=== PATIENT | male | born 1970 | race Caucasian/White ===

== ENCOUNTER → 2017-06-21 | Outpatient (CLI) | payer OTHER ==
[2017-06-21 12:58] LABS: ALT/SGPT 29 U/L (12-78); BLOOD UREA NITROGEN 18 mg/dl (7-18); CALCIUM 8.9 mg/dl (8.5-10.1); CARBON DIOXIDE 28 mmol/L (21-32); CHOLESTEROL 184 mg/dl (0-200); CREATININE 1.21 mg/dl (0.60-1.40); GLUCOSE 95 mg/dl (70-99); POTASSIUM 4.1 mmol/L (3.5-5.1); SODIUM 137 mmol/L (136-145)
[2017-06-21 13:01] LABS: ALKALINE PHOSPHATASE 52 U/L (45-117); AST/SGOT 14 U/L (15-37); LDL CHOLESTEROL CALCULATED 132 mg/dl; TOTAL PROTEIN 7.2 gm/dl (6.4-8.2)
== END | disposition home or self-care (01) ==
LOC: C.LABPVFM 08:13
PROVIDERS: ATTEND Nurse Practitioner Family
DX: R03.0 Elevated blood-pressure reading, without diagnosis of hypertension (principal)

== ENCOUNTER → 2017-07-13 | Outpatient (CLI) | payer OTHER ==
--- NOTE | 2017-07-14 06:12 | PAP/PSG TECHNICIAN REPORT ---
[facility] Noc Engineer Polysomnogram Report Study name: None Report date: 07/14/2017 Study date: 07/13/2017 Referring Physician: Helen Zarate Name: CARTER WILFRIDO Interpreting Physician: Deangelo Sánchez D.O. Date of : 1970 Noc Engineer: Saida Guzman [facility]. Sex: Male Age: 46 Study Type: PSG Weight: 208 lbs Height: 46 years, Height 6' 0" BMI: 28.21 Medications: EPIPEN 0.3 MG/0.3 ML, MULTI VIT, CELERY SEED, OMEGA 3 FISH OIL, BABY ASPIRIN Patient History 46 yr-old male here for a baseline study. He has a history of snoring, and daytime sleepiness. His [place] scale is 11. The test was started on room air. ETCO2 testing was not utilized during this study. Room 3 Parameters Monitored NPSG: E1-M2, E2-M1, Fp1-M2, Fp2-M1, F3-M2, F4-M2, F4-M1, C3-M2, C4-M2, C4-M1, O1-M2, O2-M2, O2-M1, T3-M2, T4-M1, P3-M2, P4-M1, CHIN1, CHIN2, HR, EKG, Legs, PFLOW, SNOR, FLOW, CFLOW, Tidal Volume, THOR, ABDO, SpO2, PLTH, CPRESS, ETCO2 Wave, ETCO2, pH Sleep Architecture Sleep Stages Time at Lights Off 10:02:32 PM STAGES Time (min.) TST (%) Time at Lights On 5:26:32 AM Wake 27.5 -- Total Recording Time (TRT) 444.00 min. N1 11.5 3 Total Sleep Period (TSP) 437.5 min. N2 299.0 72 Total Sleep Time (TST) 416.5min. N3 53.5 13 Awake Time 27.5 min. REM 52.5 13 Wake after Sleep Onset 21.5 min. Sleep Efficiency (SE) 94 % Sleep Onset Latency (MAYCOL) 6.0 min. Number of Stage 1 Shifts None Awakenings 18 Stage Changes 76 Number of REM periods 4 REM 52.5 13 REM Latency 198.0 min. NREM 364.0 87 Body Position Analysis Supine Right Left Side Prone Vertical Total Sleep Time (min.) 229.2 208.7 0.0 208.73 0.0 0.0 Total Sleep Time (%) 50% 50% 0% 50 0% N/A% Total Sleep Time REM (min.) 25.5 27.0 0.0 None 0.0 0.0 Total Sleep Time NREM (min.) 182.3 181.7 0.0 None 0.0 0.0 Intermittent Wake (min.) 21.5 6.0 0.0 None 0.0 0.0 Total Sleep Period (%) 51% None None None None None Arousals Myoclonus (PLM) * Events Count Index Events Count Index Spontaneous 23 3 Events Awake (PLMW) 48 104.7 Respiratory 8 1.3 Events Asleep w/ Arousal (PLMA) 23 3.3 PLM 23 3 Events Asleep w/o Arousal (PLMS) 93 13.4 Snoring 23 3 Total Asleep 116 16.7 Total 77 11 Total 164 22 Respiratory Analysis * CA OA MA CH H RERA Total Count 24 2 0 0 36 0 62 Index 3.5 0.3 0.0 0 5.2 0 8.9 Mean Duration 13.2 11.1 0.0 0.00 17.2 0.0 15.4 Longest Duration 20.8 11.1 0.0 0.00 0.0 0.0 22.3 Respiratory Event Summary Total Supine ~Supine Right Left Prone REM NREM Apneas Count 26 24 2 2 N/A N/A 0 26 Index 3.7 7 1 0.6 N/A N/A 0 4 Hypopneas (4% Desat) Count 36 29 7 7 N/A N/A 4 32 Index 5.2 8.4 2 2.0 N/A N/A 4.6 5.3 Apneas & All Hypopneas Count 62 53 9 9 N/A N/A 4 58 Index 8.9 15 3 3 N/A N/A 4.6 9.6 Respiratory Events (Supervisor Extrusion+All Hyp+RERA) Count 62 53 9 9 N/A N/A 4 58 Index 8.9 15 3 2.6 N/A N/A 4.6 9.6 Respiratory Related Arousal Count 8 53 0 0 N/A N/A 0 9 Index 1.3 3 0 0 N/A N/A 0 1 Snoring Analysis Supine Right Left Prone REM NREM Total Snore duration 41.6 min Snores count 1,346 120 N/A N/A 123 1,343 1,466 Snore mean duration 1.7 Sec Snores index 389 34 N/A N/A 140.6 221.4 211.2 TST with snoring (%) 10.0% Desaturation Event Summary: Minimum %SpO2 Event Count Mean/Min/Max Duration(sec.) Desaturation Index % Time In Bed > 90 72 26.1 / 8.0 / 60.0 12.1 80.6 86 - 90 10 18.5 / 8.0 / 34.5 7.0 19.4 81 - 85 0 N/A 0.0 0.0 76 - 80 0 N/A 0.0 0.0 71 - 75 0 N/A 0.0 0.0 66 - 70 0 N/A 0.0 0.0 61 - 65 0 N/A 0.0 0.0 56 - 60 0 N/A 0.0 0.0 51 - 55 0 N/A 0.0 0.0 < 50 0 N/A 0.0 0.0 Total REM NREM Awake <50% 0.0 min. 0.0 min. 0.0 min. 0.0 min. 51 - 60% 0.0 min. 0.0 min. 0.0 min. 0.0 min. 61 - 70% 0.0 min. 0.0 min. 0.0 min. 0.0 min. 71 - 80% 0.0 min. 0.0 min. 0.0 min. 0.0 min. 81 - 90% 86.1 min. 11.4 min. 72.6 min. 2.1 min. 91 - 100% 357.9 min. 41.1 min. 291.4 min. 25.4 min. Average 91 92 91 93 Minimum SpO2 84 86 84 86 Desaturation Event Index 9.7 10.3 9.2 17.5 # Desat. Events below 89% 24 3 20 1 Time(%) with Saturation below 89% 2.1 0.2 1.8 0.1 Time(min.) with Saturation below 89% 9.2 0.7 8.2 0.4 Time (mins) REM (mins) NREM (mins) % of TST SpO2 Below 90% 64 9 N55 7.9 SpO2 Below 88% 9 0 0 1 Heart Rate Analysis Min (bpm) Max (bpm) Average (bpm) Awake 52 90 67 NREM 49 86 63 REM 54 79 65 Overall 49 86 63 Supplemental O2 Values Minimum O2 level: None Value Start Time End Time Noc Engineer Comments Mr. Bennett slept in the right and supine positions. No cardiac arrhythmias were noted. Some PLMs noted. No bruxism noted. Snoring was noted and scored as a 2-3 on a scale of 1 through 5. (0=no snoring, 5=snoring loud enough to be heard through a closed door or down the maza way). He did not wake up to use the restroom during the night. Mr. Bennett stated that he slept poorly. The final report will be interpreted and signed by a sleep physician. The completed physician report will then be placed in the patient medical record. Therapy (cm H2O) 0 TIB (min.) 444.0 TST (min.) 416.5 Sleep Onset (min.) 6.0 REM Onset From Sleep (min.) 198.0 Sleep Efficiency % 94 Wakefulness (%) 6 Wakefulness (min.) 27.5 NREM 1 (%) 3 NREM 1 (min.) 11.5 NREM 2 (%) 72 NREM 2 (min.) 299.0 NREM 3 (%) 13 NREM 3 (min.) 53.5 REM (%) 13 REM (min.) 52.5 # Arousals 77 Arousal Index 11 # Snore 1,466 Snore Index 211.2 AHI 8.9 AHI Supine 15 AHI Non-Supine 3 NREM AHI 9.6 REM AHI 4.6 RDI 8.9 # Obstructive Apnea 2 # Central Apnea 24 # Mixed Apnea 0 # Hypopneas 36 RERAs 0 Total Respiratory Events 62 Time Below SpO2 89% (min.) 8.8 Mean NREM SpO2 (%) 91 Mean REM SpO2 (%) 92 Mean Sleep SpO2 (%) 91 Min NREM SpO2 (%) 84 Min REM SpO2 (%) 86 Position Supine (min.) 229.2 Position Non-supine (min.) 208.7 LM Index Sleep 16.7 LM Index NREM 17.5 LM Index REM 11.4 Mean Heart Rate (bpm) 63 Min Heart Rate (bpm) 49
--- NOTE | 2017-07-19 08:26 | POLYSOMNOGRAPH REPORT ---
CLINICAL DATA: The patient is a 46-year-old male with a history of snoring and daytime somnolence. His [place] sleepiness scale score is 11. This was an in-lab overnight polysomnography. SLEEP ARCHITECTURE: The total sleep period was 437.5 minutes. The total sleep time was 416.5 minutes. Sleep efficiency was normal at 94%. The sleep latency was normal at 6 minutes. Wake after sleep onset was 21.5 minutes. The REM latency was prolonged to 198 minutes. There were 3 REM periods during the night. Sleep consisted of stage N1 3%, stage N2 72%, stage N3 13%, stage REM 13%. AROUSAL DATA: The patient had a total of 77 arousals including 23 spontaneous arousals, 8 respiratory arousals, 23 PLM arousals, and 23 snoring arousals. The arousal index was 11. PLM DATA: The patient had 116 periodic limb movements of sleep for a PLM index of 16.7. There were 23 arousals associated with limb movements for a PLM arousal index of only 3.3. EKG: The underlying cardiac rhythm was normal sinus. The cardiac rates ranged from 49-86 beats per minute. The average heart rate was 63 beats per minute. No cardiac arrhythmias were noted. RESPIRATORY DATA: The patient had a total of 62 respiratory events including 24 central apneas, 2 obstructive apneas, and 36 hypopneas. Hypopneas were scored according to the 4% desaturation rule. The longest apnea was 20.8 seconds. The mean duration of the hypopneas was 17.2 seconds. The apnea hypopnea index was 8.9. This reflects mild obstructive sleep apnea. OXIMETRY DATA: The average saturation for the night was 91%. The minimum saturation was 84%. There was a total of 9.2 minutes with saturations less than 89%. POTATO SEED CUTTER COMMENTS: The patient slept in the right and supine positions. No cardiac arrhythmias were noted. Some PLMs noted. No bruxism noted. Snoring was noted and scored as a 2-3 on a scale of 1 through 5. He did not wake up to use the restroom during the night. The patient stated that he slept poorly. IMPRESSION: Mild obstructive sleep apnea. COMMENTS: The patient had a normal sleep efficiency. Sleep architecture showed decreased REM sleep. There was increased stage N2 sleep. He had mild sleep apnea. There was both an obstructive and central component. He had a total of 24 central apneas, most of which occurred shortly before awakening in the morning. His oxygenations were transiently decreased. In the supine position, his apnea hypopnea index was 15. The patient has a history of symptoms including daytime somnolence and thus treatment would be advised. RECOMMENDATIONS: 1. Consideration is given to treatment with nasal CPAP therapy. This could be done by referral to the sleep lab for a CPAP titration. Alternatively, he could be started on auto CPAP. 2. If the patient refused nasal CPAP therapy, consideration could be given to treatment with an oral appliance if his teeth are in good enough condition to qualify for this modality. 3. The patient should be advised to avoid sleeping in the supine position. Typically, there is more snoring and respiratory events while supine. 4. Weight loss is advised in light of the mild elevation of body mass index at 28.21. 5. Clinical correlation is needed to determine if the limb movements are significantly affecting his sleep.
== END | disposition home or self-care (01) ==
LOC: C.NEUR 21:00
PROVIDERS: ATTEND Nurse Practitioner Family
DX: G47.9 Sleep disorder, unspecified (principal); R06.83 Snoring

== ENCOUNTER → 2017-07-29 | Outpatient (CLI) | payer OTHER ==
[~2017-07-29] VITALS: Ht 180.3 cm; Wt 98.7 kg
[2017-07-29 15:47] VITALS: BP 151/82; PULSE 77; Ht 180.3 cm; Wt 98.7 kg
== END | disposition home or self-care (01) ==
LOC: C.NEUR 15:25
PROVIDERS: ATTEND Internal Medicine Pulmonary Disease
DX: G47.33 Obstructive sleep apnea (adult) (pediatric) (principal)